=== PATIENT | female | born 1990 | race Hispanic/Latino ===

== ENCOUNTER 2016-06-18 04:46 | Inpatient (IN) | payer MEDICAID ==
[~2016-06-18] VITALS: Ht 149.9 cm; Wt 91.6 kg
[2016-06-18] MEDS ORDERED: Lactated Ringer's 1,000 ML IV PRN (04:47)
[2016-06-18] MEDS ORDERED: Oxytocin 30 Units/500 mL LR 30 UNITS in IV Premix 1 EACH IV PRN (04:50)
[2016-06-18] MEDS ORDERED: Carboprost 250 mCg/mL Inj IM PRN ×2 (04:50→11:45)
[2016-06-18] MEDS ORDERED: Hemorrhage Kit, Post Partum XX ONE ×2 (04:50→11:45)
[2016-06-18] MEDS ORDERED: Oxytocin 10 Unit/mL Inj IM PRN ×2 (04:50→11:45)
[2016-06-18] MEDS ORDERED: Methylergonovine 0.2 mg/mL Inj IM PRN ×2 (04:50→11:45)
[2016-06-18] MEDS ORDERED: fentaNYL-PF 50 mCg/mL 2 mL Inj IVPUSH PRN (04:50)
[2016-06-18] MEDS ORDERED: Sodium Chloride LOK Flush 10 mL Syringe IVFLUSH PRN (04:50)
[2016-06-18 05:10] LABS: Mean Corpuscular Hemoglobin 27.6 pg (27.0-35.0); Mean Corpuscular Volume 79.4 fL (81-100)
--- NOTE | 2016-06-18 11:01 | HP ---
[address] [address] HISTORY AND PHYSICAL PATIENT: WARREN DELATORRE : 1990 MR#: [id number] ADMIT: 06/18/2016 JOB ID: [id number] CHIEF COMPLAINT: Contractions. HISTORY OF PRESENT ILLNESS: This is a 26-year-old G 6, P 2-0-3-2 female who is presenting at 41+ six weeks gestational age with an EDC of June 05, 2016, who is admitted for an induction of labor due to post dates. Her was complicated by an echogenic intracardiac focus. She is dated by a 17 week ultrasound. She was a planned induction of labor for this morning at 7 a.m.; however, she came into Labor and Delivery at 5 a.m. and was noted to be in active labor at 5 cm dilated. LABORATORY DATA: Shows blood type of O positive, antibody screen negative, rubella immune, varicella immune, hep B surface antigen negative, HIV negative, GBS negative. She strongly desired to avoid epidural. PAST MEDICAL HISTORY: Denies. SURGICAL HISTORY: Denies. OBSTETRICAL HISTORY: She has had two full-term vaginal deliveries in the past. Both of her children were approximately 6.5 pounds. She has three early miscarriages as well. Her previous delivery she did receive epidurals but she does not want one at this time. SOCIAL HISTORY: She denies any tobacco, alcohol or drug use. FAMILY HISTORY: Significant for maternal and paternal type 2 diabetes mellitus. REVIEW OF SYSTEMS: Positive for contractions every 5 minutes. No vaginal bleeding. No loss of fluid and normal movement. PHYSICAL EXAMINATION: Objectively, at the time of admission, her blood pressure is 114/73, her heart rate is 84, her respiratory rate is 18, and her temperature is 36.8. In general, she is awake, alert, oriented. She is in moderate distress with contractions. Her abdomen is soft, nontender, nondistended. Size is appropriate for dates. EFW is approximately 7 to 7-1/2 pounds. Her cervix is currently 9 cm dilated, 100% effaced and 0 station. She was ruptured at bedside with return of a small amount of meconium-stained amniotic fluid. heart tones show 130s baseline, moderate variability, accelerations present, mild variable decelerations, occasional mild variable decelerations present. She is jerzy every 2-4 minutes. Laboratory data at the time of admission, her white count is 13.2, her hemoglobin is 13.8. Her platelets are 151. ASSESSMENT AND PLAN: This is a 26-year-old, G 6, P 2-0-3-2 female at 41 + 6 weeks gestational age admitted in labor. complicated by post dates and echogenic intracardiac focus, maternal obesity and a history of three miscarriages. She is doing well. PLAN: At this point in time, the patient is making progress. She does not want an epidural and is jerzy uncomfortably with a desire to push with each contraction. However, she is not completely dilated. She has made slow progress from 5 at the time of admission. She is now 9 five hours later, but is changing relatively slowly. Artificial rupture of membranes was completed at 9 a.m. when she was 7 cm and she has now progressed to 9. Pitocin was added for augmentation as well and we will anticipate a vaginal delivery. She is Rh positive, rubella immune, varicella immune and no vaccines are indicated.
[2016-06-18] MEDS ORDERED: Lactated Ringer's 1,000 ML IV SCH (11:42)
[2016-06-18] MEDS ORDERED: HYDROcodone-APAP 5-325 mg Tablet PO PRN (11:45)
[2016-06-18] MEDS ORDERED: Witch Hazel-Glycerin Pads TOPICAL PRN (11:45)
[2016-06-18] MEDS ORDERED: LANOlin HPA 7 Gm Ointment TOPICAL PRN (11:45)
[2016-06-18] MEDS ORDERED: Benzocaine (Dermoplast) 20% 60 Gm Spray TOPICAL PRN (11:45)
[2016-06-18] MEDS: Ascorbic Acid 500 mg Tablet PO SCH (17:30)
--- NOTE | 2016-06-18 20:37 | OP ---
[address] [address] OPERATIVE REPORT PATIENT: WARREN DELATORRE : 1990 MR#: [id number] ADMIT: 06/18/2016 JOB ID: [id number] DATE OF SURGERY: 06/18/2016 PREOPERATIVE DIAGNOSIS(ES): 1. A 41 plus 6 week intrauterine in active labor. 2. Intracardiac echogenic focus on ultrasound. POSTOPERATIVE DIAGNOSIS(ES): 1. A 41 plus 6 week intrauterine in active labor. 2. Intracardiac echogenic focus on ultrasound. PROCEDURE PERFORMED: Spontaneous vaginal delivery. SURGEON: Tayler Cherry MD. ANESTHESIA: None. ESTIMATED BLOOD LOSS: 200 cc. FLUID REPLACEMENT: Crystalloid in labor. COMPLICATIONS: None apparent. FINDINGS: Liveborn female infant, born at 1059 hours on 06/18/2016. Weight is not available but average gestational age, with Apgars 8 at one minute, 9 at five minutes. INDICATIONS: This is a 26-year-old, 6, para 2-0-3-2 female who presented at 41 plus 6 weeks gestational age complaining of regular uterine contractions. She did have a planned induction of labor scheduled for this morning but presented two hours prior at 5 cm dilated. She was admitted in active labor and requested to not have an epidural. She progressed to 7 cm and then artificial rupture of membranes was completed with return of meconium-stained amniotic fluid. laboratory data showed blood type O-positive, antibody screen negative, rubella immune, varicella immune, hep B surface antigen negative, RPR nonreactive, HIV negative, and GBS negative. After she was 7 cm, she slowly progressed to 8 cm dilated and then to 9 cm dilated, and she was involuntarily pushing without an epidural. She was checked and noted to have some cervical edema at 12 o'clock. This was manually reduced and the patient was straight catheterized at the bedside. She then continued to push after her cervix was reduced and then brought the 's vertex to the perineum. PROCEDURE: The patient was noted to be complete at this point in time, and pushing with the cervix reduced. She pushed and the head delivered spontaneously in the JOJO position over intact perineum. The anterior shoulder delivered easily, followed by the posterior shoulder. The remainder of the was then easily delivered. After a 60 second cord clamping delay, the cord was clamped and cut, and the infant was passed to the mother's abdomen where nursing personnel were in attendance. Cord blood was then obtained. Pitocin was started per protocol and the placenta delivered intact spontaneously and was passed off the table. It was noted to be quite calcified. Examination of the cervix, vaginal vault and perineum showed no lacerations. The patient tolerated the procedure well, recovered in labor and delivery with her infant. All sponge, needle, and instrument counts were correct.
[2016-06-19 06:24] LABS: Mean Corpuscular Hemoglobin 27.1 pg (27.0-35.0); Mean Corpuscular Volume 81.1 fL (81-100)
[2016-06-19] MEDS: Ascorbic Acid 500 mg Tablet PO SCH (07:59)
--- NOTE | 2016-06-19 09:19 | PCM.PNOBPP ---
Subjective Date of Service June 19, 2016 Post : Spontaneous Vaginal Delivery Visit History This is a 26-year-old G 6, P 2-0-3-2 female who is presenting at 41+ six weeks gestational age with an EDC of June 05, 2016, who is admitted for an induction of labor due to post dates. Her was complicated by an echogenic intracardiac focus. She is dated by a 17 week ultrasound. She was a planned induction of labor for this morning at 7 a.m.; however, she came into Labor and Delivery at 5 a.m. and was noted to be in active labor at 5 cm dilated. LABORATORY DATA: Shows blood type of O positive, antibody screen negative, rubella immune, varicella immune, hep B surface antigen negative, HIV negative, GBS negative. She strongly desired to avoid epidural. Subjective Patient has no complaints today. She is doing well, ambulating and voiding without difficulty. Her pain is controlled with oral ibuprofen. Lochia: Normal Pain Management: PO pain meds Gastrointestinal: Good Appetite, No N/V Postop Activity: Ambulating Independently Group B Strep Results: Negative Rubella: Immune Blood Type: O RH Type: Positive Labs Laboratory Tests 06/19/16 05:50: White Blood Count 12.0, Red Blood Count 4.35, Hemoglobin 11.8, Hematocrit 35.3, Mean Corpuscular Volume 81.1, Mean Corpuscular Hemoglobin 27.1, Mean Corpuscular Hemoglobin Concent 33.4, Red Cell Distribution Width 15.1, Platelet Count 136 Exam Vital Signs Vital Signs: VS reviewed, stable Exam Abdomen: Fundus firm Perineum: Intact Extremities: No cords Lungs: Clear to Auscultation Heart: Exam Unremarkable General: Alert, Oriented X3, Cooperative, No Acute Distress OB Post Assessment/Plan Problems: (1) care and examination immediately after delivery Status: Acute ICD Code: Z39.0 Pain Evaluation: Adequate Pain Control Post plan: Continue routine post care, Anticipate discharge home today Chichi Kennedy MD June 19, 2016 09:19
--- NOTE | 2016-06-19 09:21 | PCM.DIOB ---
Obstetrical Disch Instruction Date of Service: June 19, 2016 Dates of Hospitalization Date of Hospital Admission June 18, 2016 at 04:46 Providers Admitting Physician: Chichi Kennedy MD Primary Care Physician: Chichi Kennedy MD Attending Physician: Chichi Kennedy MD Discharge Diagnosis Discharge Diagnosis a normal spontaneous vaginal delivery on 06/18/2016 42 weeks gestation. Problems: (1) care and examination immediately after delivery Status: Acute ICD Code: Z39.0 Diet Discharge Diet: No restrictions Activity Discharge Activity-General: Pelvic Rest for 6 weeks, Try not to overdue, Be up and about Dressing and Incisional Care Hygiene: May shower, NO bathtub, hot tub or whirlpool (for 2 weeks), Perineal care, Sitz bath, Dermoplast spray, Witch Temi pads, Ice Follow Up Plan Follow-up appointment: Weeks (4-6 weeks for a routine visit) Call your provider for: Fever or Chills, Shortness of breath, Heavy vaginal bleeding, Red painful breasts Chichi Kennedy MD June 19, 2016 09:21
[2016-06-19] MEDS ORDERED: FERR-74 PO (09:23)
[2016-06-19] MEDS ORDERED: DOCU-41 PO (09:23)
[2016-06-19] MEDS ORDERED: Ascorbic Acid PO (09:23)
[2016-06-19] MEDS ORDERED: IBUP800T28 PO (09:23)
--- NOTE | 2016-06-19 09:26 | PCM.DC.OB ---
Obstetrical Discharge Summary Date of Service June 19, 2016 Date of hospital admission June 18, 2016 at 04:46 Date of Discharge: June 19, 2016 Providers Admitting Physician: Lamar Woodall MD Primary Care Physician: Lamar Woodall MD Attending Physician: Lamar Woodall MD Problems: (1) care and examination immediately after delivery Status: Acute ICD Code: Z39.0 Brief History and Physical: This is a 26-year-old G 6, P 2-0-3-2 female who is presenting at 41+ six weeks gestational age with an EDC of June 05, 2016, who is admitted for an induction of labor due to post dates. Her was complicated by an echogenic intracardiac focus. She is dated by a 17 week ultrasound. She was a planned induction of labor for this morning at 7 a.m.; however, she came into Labor and Delivery at 5 a.m. and was noted to be in active labor at 5 cm dilated. LABORATORY DATA: Shows blood type of O positive, antibody screen negative, rubella immune, varicella immune, hep B surface antigen negative, HIV negative, GBS negative. She strongly desired to avoid epidural. Hospital Course: This is a 26-year-old G 6, P 2-0-3-2 female who is presenting at 41+ six weeks gestational age with an EDC of June 05, 2016, who is admitted for an induction of labor due to post dates. Her was complicated by an echogenic intracardiac focus. She is dated by a 17 week ultrasound. She was a planned induction of labor for this morning at 7 a.m.; however, she came into Labor and Delivery at 5 a.m. and was noted to be in active labor at 5 cm dilated. She progressed through labor without difficulty and had a normal spontaneous vaginal delivery. Her course was uneventful. LABORATORY DATA: Shows blood type of O positive, antibody screen negative, rubella immune, varicella immune, hep B surface antigen negative, HIV negative, GBS negative. She strongly desired to avoid epidural. ([Ascorbic Acid]) 500 MG TABLET 500 MG PO BIDWM Prescribed by: LAMAR WOODALL MD Docusate Sodium (Colace) 100 Mg Capsule 100 MG PO DAILY Prescribed by: LAMAR WOODALL MD Ferrous Sulfate (Feosol) 325 Mg Tablet 325 MG PO BIDWM Prescribed by: LAMAR WOODALL MD Ibuprofen (Ibuprofen) 800 Mg Tablet 800 MG PO Q6H PRN PRN For Pain Prescribed by: LAMAR WOODALL MD Follow-up plan Follow-up for a routine visit in 4-[address] Hart. Discharge Diet: No restrictions Discharge Activity-General: Pelvic Rest for 6 weeks, Try not to overdue, Be up and about Lamar Woodall MD June 19, 2016 09:26
[2016-06-19 12:11] VITALS: BP 99/66; PULSE 71; RESP 16
== END 2016-06-19 12:57 | disposition home or self-care (01) | DRG 560 ==
LOC: FBC 04:46
PROVIDERS: ADMIT Obstetrics & Gynecology; ATTEND Obstetrics & Gynecology
PROC: 10E0XZZ Delivery of Products of Conception, External Approach (ICD-10-PCS; principal; 2016-06-18)
PROC: 10907ZC Drainage of Amniotic Fluid, Therapeutic from Products of Conception, Via Natural or Artificial Opening (ICD-10-PCS; 2016-06-18)
DX: O48.0 Post-term pregnancy (principal); Z68.41 Body mass index [BMI] 40.0-44.9, adult; Z3A.41 41 weeks gestation of pregnancy; Z37.0 Single live birth; O77.0 Labor and delivery complicated by meconium in amniotic fluid; E66.9 Obesity, unspecified; O99.214 Obesity complicating childbirth